=== PATIENT | female | born 1940 | race Caucasian/White ===

== ENCOUNTER 2019-07-03 08:21 | Outpatient (CLI) | payer MEDICARE, SELFPAY ==
--- NOTE | ~2019-07-03 | MM_ITS ---
EXAMINATION: MM screening emile BI w payam HISTORY: Screening mammogram TECHNIQUE: Craniocaudal and mediolateral oblique 3-D tomosynthesis images were obtained and synthetic 2-D images were generated. CAD analysis was submitted and interpreted. COMPARISON: 06/30/2018, 06/24/2017, 06/21/2016, 06/20/2015 bilateral digital screening mammogram examinati ons BREAST PARENCHYMAL COMPOSITION: There are scattered areas of fibroglandular density. FINDINGS: There is no evidence of suspicious mass, calcification, or architectural distortion to sugg est malignancy in either breast. There has been no suspicious interval change. IMPRESSION: 1. No mammographic evidence of malignancy. 2. Recommend routine screening mammography in one year. BI-RADS Category 1: Negative Reviewed, dictated and finalized at location A. DREDGER
== END 2019-07-03 08:22 | disposition home or self-care (01) ==
LOC: ANHIMG 08:26
PROVIDERS: PCP Family Medicine; Visit Provider Obstetrics & Gynecology
DX: Z12.31 Encounter for screening mammogram for malignant neoplasm of breast (principal)
CPT/HCPCS: 77063; 77067

== ENCOUNTER 2020-01-15 10:00 | Emergency (ER) | payer MEDICARE, SELFPAY ==
--- NOTE | ~2020-01-15 | XR_ITS ---
XR chest 1V portable 01/15/2020 10:53 Indication: Dyspnea. Covid Procedure: AP portable chest Comparison: No prior studies for comparison. Findings: Patchy bilateral airspace disease, compatible with pneumonia. No pleural effusion. No pneum othorax. No acute osseous abnormality. Moderate degenerative changes of the left glenohumeral joint. Impression: 1: Patchy bilateral airspace disease, compatible with pneumonia. Reviewed, dictated and finalized at location B. Impression: 1: Patchy bilateral airspace disease, compatible with pneumonia.
[2020-01-15 10:11] VITALS: BP 127/62; PULSE 100; RESP 20; TEMP 36.8; O2SAT 97
--- NOTE | 2020-01-15 10:11 | ECG_ITS ---
Measurements Intervals [place] Rate: 96 P: 63 CO: 124 QRS: -56 QRSD: 118 T: 65 QT: 353 QTc: 448 Interpretive Statements SINUS RHYTHM POSSIBLE LEFT ATRIAL ENLARGEMENT LEFT ANTERIOR FASCICULAR BLOCK NONSPECIFIC ST ELEVATION IN ANTEROLAT/INF LEADS BASELINE ARTIFACT- I, III ABNORMAL ECG Electronically Signed On 01-15-2020 10:48:13 CDT by Beni Mcleod D.O.
[2020-01-15] MEDS: LACTATED RINGERS 1,000 ML 999 ML IV CONT ×2 (10:36→11:38)
--- NOTE | 2020-01-15 10:41 | ED.GENADULT ---
HPI - General Adult General Chief complaint: Weakness Stated complaint: covid + with weakness Time Seen by Provider: 01/15/20 10:07 Source: patient and family Mode of arrival: ambulatory Limitations: no limitations History of Present Illness HPI narrative: Patient is a 79-year-old female who is COVID positive presenting with weakness and fatigue patient has been sick for 1 week was confirmed positive prior Saturday. Patient denies any vomiting does note a few loose stools notes cough and headache is the worst symptom that she has having at this time. Patient resting comfortably in the room upon arrival noting dry mouth. Patient has not taken anything today for her symptoms. Patient is also accompanied by her who is also being seen for similar symptoms and is also COVID positive Related Data Allergies Allergy/AdvReac Type Severity Reaction Status Date / Time No Known Allergies Allergy Verified 01/15/20 10:15 Review of Systems Review of Systems: All systems reviewed & are unremarkable except as noted in HPI and below PMFSH Social History Social History Smoking status: Former smoker Alcohol intake: never Exam Narrative: Exam Narrative: GENERAL: Ill-appearing, well-nourished, and in no acute distress. HEAD: Normocephalic, atraumatic. EYES: PERRLA and EOMI. ENT: Nares clear, no rhinorrhea or epistaxis. Mucous membranes moist. Oropharynx without tonsillar hypertrophy exudate or other lesions. NECK: Supple. No adenopathy or masses. CHEST: Clear to auscultation. No respiratory distress. Slight crackles in the lung bases HEART: Regular rate and rhythm. No murmur heard. Normal peripheral pulses. ABDOMEN: Soft, nontender, nondistended EXTREMITIES: Normal range of motion. No edema. SKIN: Warm, dry, no rash. NEURO: No focal deficits. Alert and oriented x3. Cranial nerves II through XII grossly intact PSYCH: Normal mood and affect. Course Course Emergency Course: Patient in the room at this time is been hydrated feeling better with interventions was given an MDI instruct will be discharged home with acute follow-up with her primary care doctor no hypoxemia or shortness of breath patient agrees with this plan Consultations Consultation #1: Discussed case with primary care Dr. Sutton who will follow the patient closely would like the patient to be started on a Z-Robbie given a short course of steroids and sent home with albuterol Date: 01/15/20 Time: 13:34 Vital Signs Vital signs: Vital Signs Temperature 98.2 F 01/15/20 10:11 Pulse Rate 100 01/15/20 10:11 Respiratory Rate 20 01/15/20 10:11 Blood Pressure 127/62 01/15/20 10:11 Pulse Oximetry 97 01/15/20 10:11 Temperature 98.2 F 01/15/20 10:11 Pulse Rate 104 H 01/15/20 12:58 Respiratory Rate 01/15/20 12:58 Blood Pressure 140/55 L 01/15/20 12:58 Pulse Oximetry 95 01/15/20 12:58 Medical Decision Making MDM Narrative Medical decision making narrative: Patient with COVID-19 no hypoxemia dyspnea does have COVID pneumonia is felt appropriate for outpatient follow-up and has been given reasons to return was hydrated in the emergency department Vital Signs Vital Signs: Vital Signs Temperature 98.2 F 01/15/20 10:11 Pulse Rate 100 01/15/20 10:11 Respiratory Rate 01/15/20 10:11 Blood Pressure 127/62 01/15/20 10:11 Pulse Oximetry 97 01/15/20 10:11 Temperature 98.2 F 01/15/20 10:11 Pulse Rate 104 H 01/15/20 12:58 Respiratory Rate 01/15/20 12:58 Blood Pressure 140/55 L 01/15/20 12:58 Pulse Oximetry 95 01/15/20 12:58 Lab Data Result diagrams: 01/15/20 10:26 01/15/20 10:26 Labs: Lab Results 01/15/20 01/15/20 01/15/20 Range/Units 10:26 10:26 10:26 WBC 8.6 (4.5-10.0) K/mm3 RBC 4.29 (4.2-5.4) M/mm3 Hgb 13.9 (12.0-15.0) g/dL Hct 38.6 (37.0-47.0) % MCV 90.0 (80-100) fl MCH 32.4
[2020-01-15 10:45] LABS: Basophils Percent Auto 0.1 % (0.2-1.2); Hematocrit 38.6 % (37.0-47.0); Hemoglobin 13.9 g/dL (12.0-15.0); Immature Granulocyte Absolute 0.03 K/mm3 (0.00-0.031); Immature Granulocyte Percent A 0.3 % (0-0.5); Lymphocytes Absolute Auto 1.41 K/mm3 (0.9-3.2); Lymphocytes Percent Auto 16.4 % (18.3-44.2); Mean Corpuscular Hemoglobin 32.4 pg (26-34); Mean Platelet Volume 10.3 fl (7.4-10.4); Monocytes Absolute Auto 0.7 K/mm3 (0.1-0.6); Monocytes Percent Auto 8.2 % (2.6-8.5); Neutrophils Absolute Auto 6.5 K/mm3 (1.3-6.7); Platelet Count Result 248 k/mm3 (150-375); Red Blood Count 4.29 M/mm3 (4.2-5.4); Red Cell Distribution Width 12.7 % (11.5-14.5); White Blood Count 8.6 K/mm3 (4.5-10.0)
[2020-01-15 10:54] LABS: INR 1.3; Prothrombin Time 15.4 Seconds (11.1-14.7)
[2020-01-15 10:55] LABS: Partial Thromboplastin Time 38.9 SECONDS (22.3-36.8)
[2020-01-15 10:57] LABS: Lactic Acid Reflex 1.1 mmol/L (0.7-2.1)
[2020-01-15 10:58] LABS: Alanine Aminotransferase 21 U/L (4-35); Albumin Level 4.2 g/dL (3.5-5.1); Alkaline Phosphatase 75 U/L (38-126); Anion Gap 12 mmol/L (8-16); Aspartate Amino Transferase 40 U/L (14-36); Bilirubin,Total 0.8 mg/dL (0.2-1.3); Blood Urea Nitrogen 11 mg/dL (7-17); Calcium 9.1 mg/dL (8.4-10.2); Carbon Dioxide 25 mmol/L (22-30); Chloride 95 mmol/L (98-107); Estimated Glomerular Filt Rate > 60; Glucose 114 mg/dL (65-105); Potassium 3.7 mmol/L (3.4-5.0); Sodium 132 mmol/L (137-145)
[2020-01-15 11:09] LABS: Troponin I < 0.012 ng/mL (0.000-0.034)
[2020-01-15 11:11] LABS: Add Urine Microscopic? YES; Appearance Urine Clear (Clear); Bacteria Urine Trace /hpf; Bilirubin Urine Negative (Negative); Blood Urine Negative (Negative); Color Urine Yellow (Yellow); Glucose Urine UA Negative (Negative); Ketones Urine 2+ mg/dL (Negative); Leukocyte Esterase Ur Negative LEU/UL (Negative); Mucus Urine Rare /lpf; Nitrate Urine Negative (Negative); Protein Urine 2+ mg/dL (Negative); RBC Urine 0-2 /hpf (0-2); Specific Grav Ur 1.028 (1.001-1.035); Squamous Epithelial Cell Urine Few /hpf (Few); Urobilinogen Urine Negative mg/dL (<2.0); WBC Urine 0-3 /hpf
[2020-01-15 11:23] LABS: CRP 24.4 mg/dL (<1.0)
[2020-01-15 11:38] VITALS: BP 141/96; PULSE 94; RESP 20; O2SAT 95
[2020-01-15 12:58] VITALS: BP 140/55; PULSE 104; RESP 20; O2SAT 95
[2020-01-15 13:55] VITALS: BP 138/60; PULSE 99; RESP 20; O2SAT 96
== END 2020-01-15 13:59 | disposition home or self-care (01) ==
PROVIDERS: Emergency Medicine Emergency Medical Services; Emergency Provider Emergency Medicine; PCP Family Medicine
DX: J18.9 Pneumonia, unspecified organism (principal); U07.1 COVID-19; Z87.891 Personal history of nicotine dependence; I44.4 Left anterior fascicular block
CPT/HCPCS: 36415; 71045; 80053; 81001; 83605; 84484; 85025; 85610; 85730; 86140; 87040; 87077; 87186; 93005; 96360; 96361; 99284; J7120

== ENCOUNTER 2020-02-17 10:44 | Outpatient (CLI) | payer MEDICARE, SELFPAY ==
--- NOTE | ~2020-02-17 | XR_ITS ---
XR chest 2V 02/17/2020 11:09 Indication: Pneumonia Procedure: PA and lateral views of the chest Comparison: 01/15/2020 Findings: There is patchy predominantly basilar infiltrates with improved consolidation primarily aff ecting the lung bases. No significant pleural effusion. The lungs are hyperinflated which is consist ent with, but not diagnostic of chronic obstructive pulmonary disease.. No pneumothorax. Impression: 1: Patchy bibasilar infiltrates appear slightly improved compared with prior examination allowing for differences of technique. Reviewed, dictated and finalized at location B. Impression: 1: Patchy bibasilar infiltrates appear slightly improved compared with prior ex amination allowing for differences of technique.
[2020-02-17 11:52] LABS: Anion Gap 7 mmol/L (8-16); Blood Urea Nitrogen 19 mg/dL (7-17); Calcium 10.2 mg/dL (8.4-10.2); Carbon Dioxide 31 mmol/L (22-30); Chloride 102 mmol/L (98-107); Estimated Glomerular Filt Rate > 60; Glucose 105 mg/dL (65-105); Potassium 4.7 mmol/L (3.4-5.0); Sodium 140 mmol/L (137-145)
== END 2020-02-17 10:45 | disposition home or self-care (01) ==
PROVIDERS: PCP Family Medicine; Visit Provider Physician Assistant Medical
DX: U07.1 COVID-19 (principal); J18.9 Pneumonia, unspecified organism; R91.8 Other nonspecific abnormal finding of lung field
CPT/HCPCS: 36415; 71046; 80048

== ENCOUNTER 2020-03-09 10:37 | Outpatient (CLI) | payer MEDICARE, SELFPAY ==
--- NOTE | ~2020-03-09 | XR_ITS ---
EXAMINATION: XR chest 2V DATE: 03/09/2020 10:59 INDICATION: COVID-19 pneumonia. Positive test 01/07/2020. TECHNIQUE: Frontal and lateral views of the chest were obtained. COMPARISON: Chest 2 views 02/17/2020, chest single view 01/15/2020 FINDINGS: There are airspace and interstitial opacities in the right mid and lower lung zones and lef t lower lung zone with a peripheral predominance. No pleural effusion or pneumothorax. The heart size is normal. IMPRESSION: 1. Airspace and interstitial opacities in the right mid and lower lung zones and left lower lung zone with mild improvement, consistent with pneumonia. Reviewed, dictated and finalized at location B. R SETTER IMPRESSION: 1. Airspace and interstitial opacities in the right mid and lower lung zones an d left lower lung zone with mild improvement, consistent with pneumonia.
== END 2020-03-09 10:38 | disposition home or self-care (01) ==
PROVIDERS: PCP Family Medicine; Visit Provider Physician Assistant Medical
DX: J18.9 Pneumonia, unspecified organism (principal); R91.8 Other nonspecific abnormal finding of lung field
CPT/HCPCS: 71046

== ENCOUNTER 2020-04-08 10:11 | Outpatient (CLI) | payer MEDICARE, SELFPAY ==
--- NOTE | ~2020-04-08 | XR_ITS ---
EXAMINATION: XR chest 2V DATE: 04/08/2020 10:37 INDICATION: COVID-19 pneumonia. Positive test 01/07/2020 TECHNIQUE: Frontal and lateral views of the chest were obtained. COMPARISON: Chest 2 views 03/09/2020, 02/17/2020, chest single view 01/15/2020 FINDINGS: There are peripheral airspace and interstitial opacities in right mid and lower lung zones and left lower lung zone. No pleural effusion or pneumothorax. The heart size is normal. IMPRESSION: 1. Peripheral airspace and interstitial opacities in right mid and lower lung zones and left lower antoni ng zone with interval improvement, consistent with pneumonia. Reviewed, dictated and finalized at location B. ING ASSISTANT IMPRESSION: 1. Peripheral airspace and interstitial opacities in right mid and lower lung z ones and left lower lung zone with interval improvement, consistent with pneumo brenda.
== END 2020-04-08 10:12 | disposition home or self-care (01) ==
PROVIDERS: PCP Family Medicine; Visit Provider Nurse Practitioner Family
DX: Z09 Encounter for follow-up examination after completed treatment for conditions other than malignant neoplasm (principal); U07.1 COVID-19; J12.89 Other viral pneumonia
CPT/HCPCS: 71046

== ENCOUNTER 2020-05-20 11:54 | Outpatient (CLI) | payer MEDICARE, SELFPAY ==
--- NOTE | ~2020-05-20 | XR_ITS ---
EXAMINATION: XR chest 2V DATE: 05/20/2020 12:18 INDICATION: Pneumonia, unspecified organism. TECHNIQUE: Frontal and lateral views of the chest were obtained. COMPARISON: Chest 2 views 04/08/2020 FINDINGS: There are mild airspace opacities in the lower lung zones. No pleural effusion or pneumotho rax. The heart size is normal. IMPRESSION: 1. Stable mild airspace opacities in the lower lung zones, consistent with pneumonia versus post-COVI D-19 lung disease. Reviewed, dictated and finalized at location B. ING DRAGLINE OPERATOR IMPRESSION: 1. Stable mild airspace opacities in the lower lung zones, consistent with pneu monia versus [id number] lung disease.
[2020-05-20 13:17] LABS: Thyroid Stimulating Hormone 0.492 uIU/mL (0.465-4.680)
== END 2020-05-20 11:55 | disposition home or self-care (01) ==
LOC: ANHIMG 11:59
PROVIDERS: Nurse Practitioner Family; Family Provider Family Medicine; PCP Family Medicine; Visit Provider Nurse Practitioner Family
DX: U07.1 COVID-19 (principal); J18.9 Pneumonia, unspecified organism; R53.83 Other fatigue; R91.8 Other nonspecific abnormal finding of lung field
CPT/HCPCS: 36415; 71046; 84443

== ENCOUNTER 2020-07-05 08:18 | Outpatient (CLI) | payer MEDICARE, SELFPAY ==
--- NOTE | ~2020-07-05 | MM_ITS ---
EXAMINATION: MM screening emile BI w payam HISTORY: Screening mammogram TECHNIQUE: Craniocaudal and mediolateral oblique 3-D tomosynthesis images were obtained and synthetic 2-D images were generated. CAD analysis was submitted and interpreted. COMPARISON: 09/2019, 06/2018, 06/24/2017 bilateral digital screening mammogram examinations BREAST PARENCHYMAL COMPOSITION: There are scattered areas of fibroglandular density. FINDINGS: There is no evidence of suspicious mass, calcification, or architectural distortion to sugg est malignancy in either breast. There has been no suspicious interval change. IMPRESSION: 1. No mammographic evidence of malignancy. 2. Recommend routine screening mammography in one year. BI-RADS Category 1: Negative Reviewed, dictated and finalized at location A. K THREADER
== END 2020-07-05 08:19 | disposition home or self-care (01) ==
LOC: ANHIMG 08:21
PROVIDERS: PCP Family Medicine; Visit Provider Obstetrics & Gynecology
DX: Z12.31 Encounter for screening mammogram for malignant neoplasm of breast (principal)
CPT/HCPCS: 77063; 77067

== ENCOUNTER 2021-08-15 09:16 | Outpatient (CLI) | payer MEDICARE, SELFPAY ==
--- NOTE | ~2021-08-15 | MM_ITS ---
EXAMINATION: MM screening emile BI w payam HISTORY: Screening mammogram TECHNIQUE: Craniocaudal and mediolateral oblique 3-D tomosynthesis images were obtained and synthetic 2-D images were generated. CAD analysis was submitted and interpreted. COMPARISON: 07/15/2020, 07/03/2019, 06/2018 bilateral screening mammogram examinations BREAST PARENCHYMAL COMPOSITION: There are scattered areas of fibroglandular density. FINDINGS: There is no evidence of suspicious mass, calcification, or architectural distortion to sugg est malignancy in either breast. There has been no suspicious interval change. IMPRESSION: 1. No mammographic evidence of malignancy. 2. Recommend routine screening mammography in one year. BI-RADS Category 1: Negative Reviewed, dictated and finalized at location A.
== END 2021-08-15 09:17 | disposition home or self-care (01) ==
LOC: ANHIMG 09:17
PROVIDERS: PCP Family Medicine; Visit Provider Obstetrics & Gynecology
DX: Z12.31 Encounter for screening mammogram for malignant neoplasm of breast (principal)
CPT/HCPCS: 77063; 77067

== ENCOUNTER 2022-10-03 09:31 | Outpatient (CLI) | payer MEDICARE, SELFPAY ==
--- NOTE | ~2022-10-03 | MM_ITS ---
EXAMINATION: MM screening emile BI w payam HISTORY: Screening TECHNIQUE: Craniocaudal and mediolateral oblique 3-D tomosynthesis images were obtained and synthetic 2-D images were generated. CAD analysis was submitted and interpreted. COMPARISON: Comparison to multiple prior studies sequentially, with oldest reviewed study dated 06/21. BREAST PARENCHYMAL COMPOSITION: There are scattered areas of fibroglandular density. FINDINGS: There is no evidence of suspicious mass, calcification, or architectural distortion to sugg est malignancy in either breast. There has been no suspicious interval change. IMPRESSION: 1. No mammographic evidence of malignancy. 2. Recommend routine screening mammography in one year. BI-RADS Category 1: Negative Reviewed, dictated and finalized at location A.
== END 2022-10-03 09:32 | disposition home or self-care (01) ==
LOC: ANHIMG 09:32
PROVIDERS: PCP Family Medicine; Visit Provider Obstetrics & Gynecology
DX: Z12.31 Encounter for screening mammogram for malignant neoplasm of breast (principal)
CPT/HCPCS: 77063; 77067

== ENCOUNTER 2023-12-13 07:39 | Outpatient (CLI) | payer MEDICARE, SELFPAY ==
--- NOTE | ~2023-12-13 | MM_ITS ---
EXAMINATION: MM screening emile BI w payam HISTORY: Screening TECHNIQUE: Craniocaudal and mediolateral oblique 3-D tomosynthesis images were obtained and synthetic 2-D images were generated. CAD analysis was submitted and interpreted. COMPARISON: Comparison to multiple prior studies sequentially, with oldest reviewed study dated 06/24. BREAST PARENCHYMAL COMPOSITION: Not dense: There are scattered areas of fibroglandular density. FINDINGS: There is no evidence of suspicious mass, calcification, or architectural distortion to sugg est malignancy in either breast. There has been no suspicious interval change. IMPRESSION: 1. No mammographic evidence of malignancy. 2. Recommend routine screening mammography in one year. BI-RADS Category 1: Negative Reviewed, dictated and finalized at location B.
== END 2023-12-13 07:40 | disposition home or self-care (01) ==
PROVIDERS: PCP Family Medicine; Visit Provider Obstetrics & Gynecology
DX: Z12.31 Encounter for screening mammogram for malignant neoplasm of breast (principal)
CPT/HCPCS: 77063; 77067

== ENCOUNTER 2024-12-06 10:57 | Emergency (ER) | payer MEDICARE, SELFPAY ==
--- NOTE | ~2024-12-06 | CT_ITS ---
EXAMINATION: CT brain wo con DATE: 12/06/2024 12:36 INDICATION: Headache and dizziness TECHNIQUE: Computed tomography (CT) of the head was performed without intravenous contrast. Sagittal and coronal reconstructions were performed. The mA was adjusted according to patient size. Iterative reconstruction technique was employed. The dose-length product was 681.00 mGy-cm. COMPARISON: head CT dated 04/11/2010 FINDINGS: No acute intracranial hemorrhage, acute infarction or mass/mass effect. Small old lacunar infarct at the right basal ganglia. There is symmetric prominence of the sulci spaces overlying the convexities consistent with mild to moderate age-appropriate diffuse cerebral volume loss. Mild to moderate scat tered nonspecific white matter hypoattenuation consistent with chronic small vessel ischemic disease. The orbits, paranasal sinuses and mastoid air cells are normal. Intracranial calcified cerebral ath erosclerosis is noted. IMPRESSION: 1. Small old lacunar infarct at the right basal ganglia. No acute intracranial process. 2. Age-related changes including mild to moderate diffuse volume loss and mild to moderate scattered white matter hypoattenuation consistent with chronic small vessel ischemic disease. Reviewed, dictated and finalized at location A. IMPRESSION: 1. Small old lacunar infarct at the right basal ganglia. No acute intracranial process. 2. Age-related changes including mild to moderate diffuse volume loss and mild to moderate scattered white matter hypoattenuation consistent with chronic smal l vessel ischemic disease.
--- OUTSIDE RECORDS SUMMARY | 2024-12-06 10:59 | XMS_ITS | Continuity of Care Document ---
Author Organization [facility] Address [address] [place] [address] [address] [place] [address] Phone Care Team Providers Care Binder Selector Name Role Phone Bassem, Edtha Unavailable Unavailable Procedures Procedure Date Eye Exam Established Pt Advance Directives Directive Yes / No Effective Date File Name No Information Encounters Encounter Description Practice Location Reason(s) For Visit Diagnoses Date Provider Providers Copied on Encounter [facility], [id number] [place] [address] [address], [place], [place], [id number], [place] tel:[phone] [facility] No Information [address] , [address], [place], [address], [place]. tel:[phone] Family History Family Member Type Diagnosis Age At Onset No Information Payers Payer name Insurance type Covered democrat ID Authoriza tion(s) [place] CI [id number] [facility] Commercial CI [id number] Social History Type Description Quantity Date Captured Comments Sex Female Smoking Status No Information Chief Complaint And Reason For Visit No Information Reason For Referral Reason For Referral No Information History Of Present Illness Encounter Date Complaint History Of Prese nt Illness No Information Functional Status Date Functional Assessmen t No Information Instructions Date Instruction Additional Infor mation No Information Assessments Type Assessment Date No Information Patient Care Teams Name Effective Dates (start - stop) Status Members No Information
[2024-12-06 11:18] VITALS: BP 141/72; PULSE 89; RESP 19; TEMP 36.6; O2SAT 98
[2024-12-06 11:22] LABS: Hematocrit 39.7 % (37.0-47.0); Hemoglobin 13.8 g/dL (12.0-15.0); Immature Granulocyte Percent A 0.3 % (0-0.5); Lymphocytes Absolute Auto 2.42 K/mm3 (0.9-3.2); Mean Corpuscular HGB Conc 34.8 g/dl (32-36); Mean Corpuscular Hemoglobin 31.7 pg (26-34); Mean Corpuscular Volume 91.3 fl (80-100); Nucleated Red Blood Cells Absolute Auto 0.000 K/mm3 (0.0-0.012); Nucleated Red Blood Cells Perc 0.0 % (0.0-0.2); Platelet Count Result 297 k/mm3 (150-375); Red Blood Count 4.35 M/mm3 (4.2-5.4); White Blood Count 10.9 K/mm3 (4.5-10.0)
[2024-12-06 11:23] LABS: Add Urine Microscopic? NO; Appearance Urine Clear (Clear); Glucose Urine UA Negative (Negative); Leukocyte Esterase Ur Negative LEU/UL (Negative); Nitrate Urine Negative (Negative); Specific Grav Ur 1.003 (1.001-1.035)
[2024-12-06 11:31] LABS: Alanine Aminotransferase 19 U/L (6-35); Albumin Level 4.7 g/dL (3.5-5.1); Alkaline Phosphatase 70 U/L (38-126); Anion Gap 9 mmol/L (4-12); Aspartate Amino Transferase 29 U/L (14-36); Bilirubin,Total 0.8 mg/dL (0.2-1.3); Blood Urea Nitrogen 12 mg/dL (7-17); Calcium 10.1 mg/dL (8.4-10.2); Carbon Dioxide 24 mmol/L (22-30); Chloride 105 mmol/L (98-107); Estimated CRCL calculation 56 ml/min; Estimated Glomerular Filt Rate > 60; Glucose 114 mg/dL (65-110); Lipase 85 U/L (23-300); Potassium 3.9 mmol/L (3.4-5.0); Sodium 138 mmol/L (137-145); Total Protein 7.6 g/dL (6.3-8.2)
[2024-12-06 11:32] VITALS: BP 151/74; BP 155/79; PULSE 90; PULSE 91
[2024-12-06 11:34] VITALS: BP 142/85; PULSE 96
--- OUTSIDE RECORDS SUMMARY | 2024-12-06 11:36 | XMS_ITS | Continuity of Care Document ---
Author Organization [facility] Address [address] [place] [address] [address] [place] [address] Phone Care Team Providers Care Coil Cutter Name Role Phone Bassem, Edtha Unavailable Unavailable Procedures Procedure Date Eye Exam Established Pt Advance Directives Directive Yes / No Effective Date File Name No Information Encounters Encounter Description Practice Location Reason(s) For Visit Diagnoses Date Provider Providers Copied on Encounter [facility], [id number] [place] [address] [address], [place], [place], [id number], [place] tel:[phone] [facility] No Information [address] , [address], [place], [address], [place]. tel:[phone] Family History Family Member Type Diagnosis Age At Onset No Information Payers Payer name Insurance type Covered alliance party ID Authoriza tion(s) Medicare [place] CI [id number] [facility] Commercial CI [id number] Social History Type Description Quantity Date Captured [...]
[2024-12-06] MEDS: LACTATED RINGERS 1,000 ML 999 ML IV CONT (11:37)
[2024-12-06] MEDS: ONDANSETRON INJ 4 MG/2 ML VIAL IV PUSH (11:37)
--- NOTE | 2024-12-06 12:21 | ED.GENADULT ---
HPI - General Adult General Chief complaint: Nausea/Vomiting/Diarrhea Stated complaint: dizzy, n/v Time Seen by Provider: 12/06/24 11:05 History of Present Illness HPI narrative: 84-year-old female presents to the emergency department for evaluation for intermittent dizziness. Patient states that she woke up in the morning she had dizziness that she states felt like a swimming sensation. Patient denies feeling like she was going have any loss of consciousness. Patient does describe vertigo. Patient states symptoms were present she woke up in the morning and lasted approximately 2 hours. Patient did have some associated nausea with this. Patient states she did drink plenty of fluid and was urinating with no issues. She denies any associated abdominal pain. Patient denied any associated numbness weakness or speech changes with this. Upon arrival emergency department patient states her symptoms are resolved. Patient was able to ambulate to the bathroom unassisted with no issues. History thyroidectomy Related Data Home Medications ?Medication ?Instructions ?Recorded ?Confirmed ?Last Taken ?Type cetirizine 10 mg capsule (Zyrtec) 10 mg PO DAILY PRN 08/14/21 08/28/23 Unknown History calcium acetate 667 mg tablet 1,334 mg PO TID 09/12/21 08/28/23 Unknown History aspirin 81 mg capsule 81 mg PO DAILY 07/11/23 08/28/23 Unknown History cranberry fruit 400 mg capsule 400 mg PO BID 07/11/23 08/28/23 Unknown History dextromethorphan-guaifenesin 10 1 tab-cap PO ONCE PRN 07/11/23 08/28/23 Unknown History mg-200 mg capsule (Mucinex Cough-Chest Congestion HBP) Allergies Allergy/AdvReac Type Severity Reaction Status Date / Time No Known Allergies Allergy Verified 08/28/23 12:30 Review of Systems Review of Systems: All systems reviewed & are unremarkable except as noted in HPI and below PMFSH Past Medical History Medical History BMI 26.0-26.9,adult Dry eyes Ear pain, right Encounter for Papanicolaou smear for cervical cancer screening Headache Screening mammogram, encounter for Sinequan poisoning Surgical History Surgical History History of dilation and curettage x2 History of gynecologic surgery uterine cyst removed History of thyroidectomy Family History Family History Mother Family history of malignant neoplasm Grandparent Family history of coronary artery disease Father No problems noted. Sibling H/O Spinal surgery Social History Social History Smoking status: Former smoker Second hand tobacco smoke exposure: No Alcohol intake: never Substance use: never Substance use type: does not use Lack of Transportation: No Lack of Food: Never True Current Housing: I Have Housing Concerned About Future Housing: No Difficulty Paying Gas/Electric Bills: No Difficulty Paying for Meds: No Currently Unemployed: No Education: High School Diploma/GED Difficulty w/ Childcare or Family Care: No Living arrangements: alone Additional living arrangements comments: spouse passed 06/2021 Occupation/Education: retired Gender identity (if verbalized by the patient): Female Sexual Orientation (if Verbalized by the Patient): Straight or Heterosexual Course Vital Signs Vital signs: Vital Signs Temperature 97.9 F 12/06/24 11:18 Pulse Rate 89 12/06/24 11:18 Respiratory Rate 19 12/06/24 11:18 Blood Pressure 141/72 H 12/06/24 11:18 Pulse Oximetry 98 12/06/24 11:18 Oxygen Delivery Room Air 12/06/24 11:18 Temperature 97.9 F 12/06/24 11:18 Pulse Rate 84 12/06/24 14:02 Respiratory Rate 20 12/06/24 14:02 Blood Pressure 171/68 H 12/06/24 14:02 Pulse Oximetry 97 12/06/24 14:02 Oxygen Delivery Room Air 12/06/24 11:18 Medical Decision Making [facility] Narrative Medical decision making narrative: 84-year-old female presents to the emergency department for evaluation for description of vertigo. Patient is currently afebrile with a leukocytosis 10.9 hemoglobin 13.8. Patient has no acute abnormalities on her CMP. UA was negative for infection. Patient does have bilateral cerumen impaction and her ears will be irrigated. While patient is symptom-free at this time she will still be treated with some p.o. meclizine. Patient does describe some left sinus pressure patient does have history of sinus infection. CT is being ordered to evaluate for any intracranial abnormality. Head CT was negative for any acute abnormality. Patient did have cerumen impaction the right ear does complain of some fullness of the right ear. After irrigation patient did have some swelling of the external canal on the right. Patient was started on antibiotics in the emergency department. Differential Diagnosis Differential Diagnosis: TIA, CVA, sinusitis, otitis media Vital Signs Vital Signs: Vital Signs Temperature 97.9 F 12/06/24 11:18 Pulse Rate 89 12/06/24 11:18 Respiratory Rate 19 12/06/24 11:18 Blood Pressure 141/72 H 12/06/24 11:18 Pulse Oximetry 98 12/06/24 11:18 Oxygen Delivery Room Air 12/06/24 11:18 Temperature 97.9 F 12/06/24 11:18 Pulse Rate 84 12/06/24 14:02 Respiratory Rate 20 12/06/24 14:02 Blood Pressure 171/68 H 12/06/24 14:02 Pulse Oximetry 97 12/06/24 14:02 Oxygen Delivery Room Air 12/06/24 11:18 Lab Data 12/06/24 11:15 12/06/24 11:15 Labs: Lab Results 12/06/24 Range/Units 11:15 WBC 10.9 H (4.5-10.0) K/mm3 RBC 4.35 (4.2-5.4) M/mm3 Hgb 13.8 (12.0-15.0) g/dL Hct 39.7 (37.0-47.0) % MCV 91.3 (80-100) fl MCH 31.7 (26-34) pg MCHC 34.8 (32-36) g/dl RDW 13.0 (11.5-14.5) % Plt Count 297 (150-375) k/mm3 MPV 9.3 (7.4-10.4) fl Immature Gran % (Auto) 0.3 (0-0.5) % Neut % (Auto) 71.6 (45.5-73.1) % Lymph % (Auto) 22.3 (18.3-44.2) % [place] % (Auto) 5.2 (2.6-8.5) % Eos % (Auto) 0.2 (0-4.4) % Baso % (Auto) 0.4 (0.2-1.2) % Lymph # (Auto) 2.42 (0.9-3.2) K/mm3 [place] # (Auto) 0.6 (0.1-0.6) K/mm3 Eos # (Auto) 0.0 (0-0.3) K/mm3 Baso # (Auto) 0.0 (0.0-0.1) K/mm3 Abs Immat Gran (auto) 0.03 (0.00-0.031) K/mm3 Absolute Neuts (auto) 7.8 H (1.3-6.7) K/mm3 Absolute Nucleated RBC 0.000 (0.0-0.012) K/mm3 Nucleated RBC % 0.0 (0.0-0.2) % Sodium 138 (137-145) mmol/L Potassium 3.9 (3.4-5.0) mmol/L Chloride 105 (98-107) mmol/L Carbon Dioxide 24 (22-30) mmol/L Anion Gap 9 (4-12) mmol/L BUN 12 D (7-17) mg/dL Creatinine 0.49 L (0.7-1.0) mg/dL Estim Creat Clear Calc 56 ml/min Estimated GFR > 60 (59 - ) Glucose 114 H (65-110) mg/dL Lactic Acid 1.3 (0.7-2.0) mmol/L Calcium 10.1 (8.4-10.2) mg/dL Total Bilirubin 0.8 (0.2-1.3) mg/dL AST 29 (14-36) U/L ALT 19 (6-35) U/L Alkaline Phosphatase 70 (38-126) U/L Total Protein 7.6 (6.3-8.2) g/dL Albumin 4.7 (3.5-5.1) g/dL Lipase 85 (23-300) U/L Urine Color Yellow (Yellow) Urine Appearance Clear (Clear) Urine pH 8.0 (5.0-9.0) Ur Specific [place] 1.003 (1.001-1.035) Urine Protein Negative (Negative) mg/dL Urine Glucose (UA) Negative (Negative) mg/dL Urine Ketones Negative (Negative) mg/dL Ur Blood (Man) Negative (Negative) Urine Nitrate Negative (Negative) Urine Bilirubin Negative (Negative) Urine Urobilinogen 0.2 (<2.0) mg/dL Leukocyte Esterase Rfl Negative (Negative) YADIRA/UL Discharge Plan Discharge Clinical Impression: Otitis media, Vertigo Patient Disposition: Home Condition: Stable Instructions: Antibiotic Form, Vertigo (DC), Ear Infection (ED) Additional Instructions: Meclizine as needed for symptoms of dizziness and vertigo. Antibiotic as directed until completed. Have close follow-up with ENT. If you have any worsening symptoms then please call or return to the emergency department. Patient Language: Palauan Prescriptions: New amoxicillin-pot clavulanate 875-125 mg tablet 1 tablet PO Q12H 7 Days Qty: 14 0RF meclizine 25 mg tablet 25 mg PO BID PRN (Reason: dizziness) 7 Days Qty: 14 0RF No Action calcium acetate 667 mg tablet 1,334 mg PO TID cranberry fruit 400 mg capsule 400 mg PO BID Rx Instructions: administer with meals Mucinex Cough-Chest Congest HB 10-200 mg capsule 1 tab-cap PO ONCE PRN aspirin 81 mg capsule 81 mg PO DAILY Zyrtec 10 mg capsule 10 mg PO DAILY PRN sulfacetamide sodium 10 % drops 1 drp ophthalmic (eye) Q4H Qty: 5 0RF fluticasone propionate 50 mcg/actuation spray,suspension See Rx Instructions .ROUTE .COMPLEX Qty: 48 0RF Dose Instruction: SHAKE LIQUID AND USE 1 SPRAY IN EACH NOSTRIL TWICE DAILY Rx Instructions: SHAKE LIQUID AND USE 1 SPRAY IN EACH NOSTRIL TWICE DAILY benzonatate 100 mg capsule 100 mg PO TID PRN (Reason: cough) Qty: 60 0RF azithromycin 250 mg tablet See Rx Instructions PO .COMPLEX Qty: 6 0RF Rx Instructions: take 500 mg today (day 1), then 250 mg for 4 days (days 2-5) PO benzonatate 200 mg capsule 200 mg PO TID PRN (Reason: cough) Qty: 30 0RF montelukast [Singulair] 10 mg tablet 10 mg PO DAILY Qty: 90 1RF Follow-up/Referrals: Ishmael John MD [Physician] - Carter Pruitt MD [Primary Care Provider] -
[2024-12-06] MEDS: MECLIZINE HCL 25 MG TABLET PO (13:11)
[2024-12-06 14:02] VITALS: BP 171/68; PULSE 84; RESP 20; O2SAT 97
== END 2024-12-06 14:55 | disposition home or self-care (01) ==
PROVIDERS: Emergency Provider Emergency Medicine; PCP Family Medicine
DX: H66.91 Otitis media, unspecified, right ear (principal); R42 Dizziness and giddiness; Z87.891 Personal history of nicotine dependence
CPT/HCPCS: 36415; 70450; 80053; 81003; 83605; 83690; 85025; 96361; 96374; 99284; A9270; J2405; J7120

== ENCOUNTER 2025-01-01 07:07 | Outpatient (CLI) | payer MEDICARE, SELFPAY ==
--- NOTE | ~2025-01-01 | MM_ITS ---
EXAMINATION: MM screening [facility] BI w payam HISTORY: Screening TECHNIQUE: Craniocaudal and mediolateral oblique 3-D tomosynthesis images were obtained and synthetic 2-D images were generated. CAD analysis was submitted and interpreted. COMPARISON: Mammogram 10/03/2022 and 08/15/2021 BREAST PARENCHYMAL COMPOSITION: Not Dense: The breasts are almost entirely fatty. FINDINGS: There is no evidence of suspicious mass, calcification, or architectural distortion to suggest malignancy in either breast. [There has been no significant interval change. IMPRESSION: 1. No mammographic evidence of malignancy. Recommend routine screening mammography in one year. BI-RADS Category 1: Negative Reviewed, dictated, and finalized at Location A. Reviewed, dictated and finalized at location Q. IMPRESSION: 1. No mammographic evidence of malignancy. Recommend routine screening mammogra phy in one year. BI-RADS Category 1: Negative
== END 2025-01-01 07:08 | disposition home or self-care (01) ==
LOC: ANHFOHIMG 07:08
PROVIDERS: PCP Family Medicine; Visit Provider Obstetrics & Gynecology
DX: Z12.31 Encounter for screening mammogram for malignant neoplasm of breast (principal)
CPT/HCPCS: 77063; 77067